=== PATIENT | male | born 1935 | race Caucasian/White ===

== ENCOUNTER 2022-01-12 06:40 | Emergency (ER) | payer MEDICARE, OTHER ==
[2022-01-12] MEDS ORDERED: PERCOCET 5-3251 EACH PO (08:57)
== END 2022-01-12 09:29 | disposition home or self-care (01) ==
LOC: FER 06:40
DX: S72.002A Fracture of unspecified part of neck of left femur, initial encounter for closed fracture (principal); I10 Essential (primary) hypertension; Z88.0 Allergy status to penicillin
CPT/HCPCS: 73502

== ENCOUNTER 2022-01-24 15:15 | Emergency (ER) | payer MEDICARE, OTHER ==
[~2022-01-24 15:15] MED LIST: PERCOCET 5-3251 EACH PO
== END 2022-01-24 17:28 | disposition home or self-care (01) ==
LOC: FER 15:15
DX: R04.0 Epistaxis (principal); I10 Essential (primary) hypertension; E11.9 Type 2 diabetes mellitus without complications; Z88.0 Allergy status to penicillin; Z79.02 Long term (current) use of antithrombotics/antiplatelets; Z79.82 Long term (current) use of aspirin; Z79.899 Other long term (current) drug therapy